=== PATIENT | female | born 1990 | race Asian ===

== ENCOUNTER 2020-08-13 06:26 | Inpatient (IN) ==
[2020-08-13] MEDS ORDERED: OXYTOCIN 30 UNITS/500 ML BAG IV PRN ×3 (06:44→23:46)
--- NOTE | 2020-08-13 06:47 | Labor Progress Brief Note ---
Date of Service August 13, 2020 Subjective at 40+ weeks presents complaining of Q3min contractions through the night, worsening intensity. No LOF, no VB, good FM. Uncomplicated , GBS neg. Assessment & Plan (1) Normal labor and delivery: Admit, expectant mgmt of labor, epidural on request Physical Exam Physical Exam: /- FHT Cat 1 [place] Q2-5 palpably vertex Results & Data ([facility]) Vital Signs (Past 12 Hours) Vital Signs Pulse BP 08/13/20 06:40 96 H 111/73 Coding Level of Care Code None Diagnoses Normal labor and delivery O80
[2020-08-13] MEDS: LACTATED RINGER'S 1,000 ML IV PRN ×3 (06:54→15:51)
[2020-08-13 07:09] LABS: Hematocrit (blood only) 32.7 % (37-47); Hemoglobin 11.1 g/dL (12.0-16.0); Mean Corpuscular Hemoglobin 33.8 pg (25-34); Mean Corpuscular Hgb Conc 33.9 g/dL (32-36); Mean Corpuscular Volume 99.7 fL (80-100); Mean Platelet Volume 9.7 fL (7.4-10.4); Platelet Count 185 K/uL (130-400); RDW Coefficient of Variation 13.6 % (11.5-14.5); RDW Standard Deviation 49.1 fL (36.4-46.3); Red Blood Count 3.28 M/uL (4.2-5.4); White Blood Count 10.87 K/uL (4.8-10.8)
[2020-08-13] MEDS ORDERED: SODIUM CHLORIDE 0.9% INJ 10 ML VIAL ONE (07:13)
[2020-08-13] MEDS ORDERED: ePHEDrine sulfate 50 MG/ML AMP ONE (07:13)
[2020-08-13] MEDS ORDERED: fentaNYL citrate 100 MCG/2 ML VIAL ONE ×2 (07:14→15:20)
[2020-08-13] MEDS ORDERED: BUPIVACAINE 0.25% 30 ML VIAL ONE (07:14)
[2020-08-13] MEDS ORDERED: fentaNYL 2MCG/ML ROPIVACAINE 1.25MG/ML 100 ML BAG EPI ONE (07:14)
[2020-08-13] MEDS ORDERED: diphenhydrAMINE 50 MG/ML VIAL IV PRN (08:23)
[2020-08-13] MEDS ORDERED: fentaNYL 2MCG/ML ROPIVACAINE 1.25MG/ML 100 ML BAG EPI PRN (08:23)
[2020-08-13] MEDS ORDERED: NALOXONE HCL 0.4 MG/1 ML VIAL/CARP IV PRN (08:23)
[2020-08-13] MEDS ORDERED: NALOXONE HCL 1 MG in SODIUM CHLORIDE 0.9% 1000ML 1,000 ML IV PRN (08:23)
[2020-08-13] MEDS ORDERED: ePHEDrine sulfate 50 MG/ML AMP IV PRN (08:23)
--- NOTE | 2020-08-13 08:25 | Anesthesiology Consultation ---
Date of Service August 13, 2020 Assessment & Plan Chart Review Chart Review: Acceptable Risk for Labor Epidural Consults Requested none History Height/Weight Height: 5 ft 1 in Weight: 60.328 kg Allergies Allergy/AdvReac Type Severity Reaction Status Date / Time No Known Allergies Allergy Verified 08/10/20 10:07 Medications Home Medications Medication Instructions Recorded Confirmed Last Taken prenat.vits,julia,dfc-hesd-myzyt 1 tab PO DAILY 02/09/20 08/13/20 08/12/20 0800 Iron (ferrous sulfate) 65 mg PO DAILY 08/13/20 08/13/20 08/12/20 65 Active Medications Generic Name Dose Route Start Last Admin Trade Name Freq PRN Reason Stop Dose Admin Lactated Ringer's 1,000 mls @ 125 mls/hr 08/13/20 06:44 08/13/20 07:59 Lr IV 08/15/20 06:43 125 mls/hr .Q8H PRN Administration L&D Protocol Protocol Past Surgical History Surgical History S/P dilation and curettage Social History Smoking Status: Never smoker Do You Dip or Chew Tobacco: No Hx Alcohol Use: No Hx Substance Use: No substance use type: does not use Physical Exam Vital Signs Last Vital Signs Temp 36.8 C 08/13/20 07:43 Pulse 91 H 08/13/20 08:24 Resp 18 08/13/20 07:43 BP 109/62 08/13/20 08:24 Pulse Ox 98 08/13/20 08:20 Testing Laboratory Results 08/13/20 06:57
[2020-08-13] MEDS ORDERED: LIDOCAINE 1% MPF 5 ML VIAL ONE (15:21)
--- NOTE | 2020-08-13 15:55 | Communication Note ---
Date of Service: August 13, 2020 Called for pt c/o increasing pain with contractions. Bolused existing epidural with 1% lidocaine plus 100 mcg fentanyl. VSS.
[2020-08-13] MEDS ORDERED: LIDOCAINE 1% LOCAL 20 ML VIAL ONE (23:28)
[2020-08-13] MEDS ORDERED: DIPHTHERIA/TETANUS/PERTUSSIS 0.5 ML SYR/VIAL IM ONE (23:46)
[2020-08-13] MEDS ORDERED: HYDROCORTISONE ACETATE 25 MG SUPP PR PRN (23:46)
[2020-08-13] MEDS ORDERED: bisacodyL 10 MG SUPP PR PRN (23:46)
[2020-08-13] MEDS ORDERED: SUPERCREAM 0.870% 15 GM JAR EXT PRN (23:46)
[2020-08-13] MEDS ORDERED: ACETAMINOPHEN 325 MG TAB PO PRN (23:46)
[2020-08-13] MEDS ORDERED: miSOPROStoL 100 MCG TAB PR ONE (23:46)
[2020-08-13] MEDS ORDERED: BENZOCAINE 20% AER SPR 82.5 GM CAN EXT PRN (23:46)
[2020-08-13] MEDS ORDERED: METHYLERGONOVINE MALEATE 0.2 MG/ML AMP IM ONE (23:46)
--- NOTE | 2020-08-14 01:17 | Anesthesiology Progress Note ---
Date of Service August 14, 2020 Anesthesia Post Procedure Vital Signs Vital Signs: Temp Pulse Resp BP Pulse Ox 08/14/20 01:10 93 H 124/58 L 08/14/20 01:00 18 08/14/20 00:59 82 120/65 08/14/20 00:42 99 H 125/60 08/14/20 00:33 95 H 121/81 08/14/20 00:30 18 08/14/20 00:09 83 138/75 08/13/20 23:59 104 H 103/75 08/13/20 23:50 122/80 08/13/20 23:45 97 H 112/66 08/13/20 23:30 98 H 114/65 08/13/20 23:18 111 H 97 08/13/20 23:15 100 H 106/61 08/13/20 23:13 101 H 97 08/13/20 23:08 123 H 97 08/13/20 23:02 103 H 97 08/13/20 23:01 129 H 94 08/13/20 23:00 37.2 C 18 08/13/20 22:57 127 H 95 08/13/20 22:55 138 H 94 08/13/20 22:52 137 H 95 08/13/20 22:50 145 H 94 08/13/20 22:47 151 H 96 08/13/20 22:45 118 H 115/71 08/13/20 22:42 131 H 95 08/13/20 22:37 156 H 95 08/13/20 22:32 118 H 95 08/13/20 22:30 114 H 18 118/72 08/13/20 22:27 129 H 96 08/13/20 22:22 101 H 97 08/13/20 22:17 113 H 96 08/13/20 22:16 121 H 105/67 08/13/20 22:12 125 H 96 08/13/20 22:10 118 H 93 08/13/20 22:07 99 H 96 08/13/20 22:02 89 98 08/13/20 22:00 100 H 127/69 08/13/20 21:57 117 H 97 08/13/20 21:52 81 97 08/13/20 21:47 123 H 97 08/13/20 21:45 112 H 118/87 08/13/20 21:42 94 H 97 06/21/21 21:37 116 H 96 08/13/20 21:32 99 H 97 08/13/20 21:30 110 H 108/53 L 08/13/20 21:27 104 H 97 08/13/20 21:22 80 97 08/13/20 21:17 120 H 97 08/13/20 21:15 108 H 117/67 08/13/20 21:12 98 H 97 08/13/20 21:07 82 98 08/13/20 21:02 113 H 97 08/13/20 21:01 81 117/67 08/13/20 21:00 37.4 C 18 08/13/20 20:57 115 H 97 08/13/20 20:52 85 98 08/13/20 20:47 80 98 08/13/20 20:46 106 H 113/69 94 08/13/20 20:42 98 H 97 08/13/20 20:37 104 H 97 08/13/20 20:32 99 H 98 08/13/20 20:31 72 105/57 L 08/13/20 20:27 83 98 08/13/20 20:22 72 97 08/13/20 20:17 74 98 08/13/20 20:15 71 104/58 L 08/13/20 20:12 70 97 08/13/20 20:07 72 97 08/13/20 20:02 72 97 08/13/20 20:00 74 101/55 L 08/13/20 19:57 75 98 08/13/20 19:52 84 98 08/13/20 19:47 83 97 08/13/20 19:45 82 101/60 08/13/20 19:42 80 97 08/13/20 19:37 83 97 08/13/20 19:32 85 99 08/13/20 19:30 90 106/78 08/13/20 19:27 105 H 100 08/13/20 19:22 36.3 C L 83 18 98 08/13/20 19:17 88 97 08/13/20 19:15 80 101/61 08/13/20 19:12 80 99 08/13/20 19:07 77 99 08/13/20 19:02 70 98 08/13/20 19:00 72 114/67 08/13/20 18:57 86 99 06/21/21 18:52 74 98 08/13/20 18:47 71 98 08/13/20 18:46 79 106/64 08/13/20 18:42 80 98 08/13/20 18:37 71 96 08/13/20 18:32 75 95 08/13/20 18:31 37.2 C 75 18 104/63 08/13/20 18:27 71 95 08/13/20 18:26 77 94 08/13/20 18:22 72 94 08/13/20 18:19 72 93 08/13/20 18:17 75 97 08/13/20 18:15 74 103/56 L 08/13/20 18:13 72 94 08/13/20 18:12 69 98 08/13/20 18:07 71 98 08/13/20 18:02 73 18 103/61 99 08/13/20 17:59 74 93 08/13/20 17:56 77 99 08/13/20 17:51 76 100 08/13/20 17:46 71 100 08/13/20 17:45 74 114/71 08/13/20 17:41 80 99 08/13/20 17:36 77 99 08/13/20 17:31 68 18 147/83 H 99 08/13/20 17:26 73 99 08/13/20 17:21 81 100 08/13/20 17:16 78 116/70 100 08/13/20 17:11 76 100 08/13/20 17:06 77 100 08/13/20 17:01 76 100 08/13/20 17:00 71 18 125/77 08/13/20 16:56 73 100 08/13/20 16:51 76 100 08/13/20 16:46 78 99 08/13/20 16:45 90 114/80 08/13/20 16:41 75 100 08/13/20 16:36 75 99 08/13/20 16:31 37.2 C 75 99 08/13/20 16:30 70 18 119/68 08/13/20 16:26 72 97 08/13/20 16:21 67 97 08/13/20 16:16 69 98 08/13/20 16:11 63 97 08/13/20 16:10 63 111/68 08/13/20 16:06 69 98 06/21/21 16:05 69 18 121/71 08/13/20 16:01 67 98 08/13/20 15:59 67 119/73 08/13/20 15:56 65 98 08/13/20 15:55 65 110/65 08/13/20 15:51 65 97 08/13/20 15:48 65 111/65 08/13/20 15:47 68 94 08/13/20 15:46 66 113/64 94 08/13/20 15:44 67 99/60 L 08/13/20 15:42 68 100/60 08/13/20 15:41 72 96 08/13/20 15:40 74 102/61 08/13/20 15:38 73 105/58 L 08/13/20 15:36 75 100/56 L 96 08/13/20 15:34 64 117/72 08/13/20 15:32 67 18 119/77 08/13/20 15:31 65 97 08/13/20 15:30 75 116/71 93 08/13/20 15:28 69 103/66 08/13/20 15:26 69 98 08/13/20 15:21 71 95 08/13/20 15:16 67 98 08/13/20 15:13 68 18 104/65 08/13/20 15:11 70 99 08/13/20 15:06 73 100 08/13/20 15:01 74 100 08/13/20 14:56 65 99 08/13/20 14:51 75 100 08/13/20 14:46 70 100 08/13/20 14:42 75 18 113/71 08/13/20 14:41 74 100 08/13/20 14:36 75 100 08/13/20 14:31 89 99 08/13/20 14:26 77 100 08/13/20 14:21 73 100 08/13/20 14:16 75 99 08/13/20 14:11 76 98 08/13/20 14:06 72 99 08/13/20 14:01 70 98 08/13/20 14:00 36.7 C 85 20 111/74 08/13/20 13:56 73 98 08/13/20 13:51 70 99 08/13/20 13:46 82 98 08/13/20 13:45 71 18 105/69 08/13/20 13:41 75 98 06 13:36 73 98 08/13/20 13:31 71 97 08/13/20 13:30 73 18 109/71 08/13/ 13:26 70 97 06/21 13:21 68 97 08/13/20 13:16 69 98 08/13/20 13:15 69 18 108/71 08/13/20 13:11 69 98 08/13/20 13:06 78 98 08/13/20 13:01 73 99 08/13/20 12:59 72 18 114/72 08/13/20 12:56 81 98 08/13/20 12:51 70 98 08/13/20 12:46 75 98 08/13/20 12:45 71 18 107/70 08/13/20 12:41 76 99 08/13/20 12:36 70 98 08/13/20 12:31 74 99 08/13/20 12:29 84 18 109/72 08/13/20 12:26 75 98 08/13/20 12:21 76 98 08/13/20 12:16 79 99 08/13/20 12:15 76 18 108/62 08/13/20 12:11 75 98 08/13/20 12:06 80 97 08/13/20 12:01 75 97 08/13/20 12:00 82 18 103/55 L 08/13/20 11:56 81 97 08/13/20 11:51 76 97 08/13/20 11:46 79 97 08/13/20 11:45 77 18 89/55 L 08/13/20 11:41 77 97 08/13/20 11:36 80 98 08/13/20 11:31 81 98 08/13/20 11:29 71 18 107/70 08/13/20 11:26 77 98 08/13/20 11:21 79 99 08/13/20 11:16 76 99 08/13/20 11:14 73 18 108/69 08/13/20 11:11 78 99 08/13/20 11:06 84 99 08/13/20 11:01 74 18 112/68 99 08/13/20 10:55 77 98 08/13/20 10:50 77 99 06/21/21 10:45 82 109/68 99 06/21 10:40 74 99 06/21 10:35 78 99 06/21 10:31 82 18 119/82 06/21 10:30 88 99 06/21 10:25 79 99 06/21 10:20 77 99 06/21 10:15 82 99 06/21 10:14 83 108/69 06/21 10:10 82 98 06/21 10:05 82 98 06/21 10:01 71 18 107/65 08/13/21 10:00 80 98 06/21 09:55 82 99 08/13/21 09:50 80 98 06/21 09:45 85 98 08/13/21 09:44 80 18 110/71 08/13/21 09:40 88 98 08/13/21 09:35 85 98 08/13/ 09:30 79 18 102/67 98 08/13/ 09:25 81 98 08/13/21 09:20 78 99 08/13/20 09:16 76 18 110/70 08/13/21 09:15 82 98 06/ 09:10 93 H 98 08/13/ 09:05 91 H 99 08/13/ 09:00 91 H 99 08/13/ 08:55 83 18 110/69 98 08/13/21 08:50 95 H 99 08/13/ 08:49 88 18 105/66 21/21 08:45 86 18 109/62 99 08/13/21 08:40 93 H 98 08/13/21 08:39 92 H 108/74 06/21 08:36 87 18 109/71 08/13/21 08:35 91 H 97 06/21 08:30 92 H 98 08/13/21 08:29 89 113/71 06/21 08:25 103 H 98 06/21 08:24 91 H 109/62 06/21 08:22 85 18 103/65 06/21 08:20 88 18 104/67 98 0621/21 08:18 94 H 110/68 08/13/21 08:16 85 18 104/66 08/13/21 08:15 82 98 06/21 08:14 82 105/63 08/13/20 08:12 80 116/69 08/13/20 08:10 84 106/62 97 08/13/20 08:08 92 H 18 120/64 08/13/20 08:06 93 H 18 120/69 93 08/13/20 08:05 93 H 97 08/13/20 08:00 92 H 96 08/13/20 07:55 98 H 99 08/13/20 07:50 77 100 08/13/20 07:45 80 99 08/13/20 07:43 36.8 C 18 08/13/20 07:40 85 99 08/13/20 07:39 76 111/67 08/13/20 07:35 95 H 100 08/13/20 06:46 96 H 18 111/73 08/13/20 06:40 96 H 111/ Pain Intensity Bilateral Abdomen: Pain Intensity: 6 Transfer of Care Handoff Completed per policy Notes Mental Status: alert / awake / arousable and participated in evaluation Patient Amnestic to Procedure: Yes Nausea / Vomiting: adequately controlled Pain: adequately controlled Airway Patency, RR, SpO2: stable & adequate BP & HR: stable & adequate Hydration State: stable & adequate Anesthetic Complications: no major complications apparent
--- NOTE | 2020-08-14 01:19 | Anesthesia Procedure Note ---
Date of Service August 14, 2020 Anesthesia Post Epidural Note Vital Signs Vital Signs: Temp Pulse Resp BP Pulse Ox 37.2 C 93 H 18 124/58 L 97 08/13/20 23:00 08/14/20 01:10 08/14/20 01:00 08/14/20 01:10 08/13/20 23:18 Pain Intensity Bilateral Abdomen: Pain Intensity: 6 Notes Mental Status: alert / awake / arousable Nausea / Vomiting: adequately controlled Pain: adequately controlled Airway Patency, RR, SpO2: stable & adequate BP & HR: stable & adequate Hydration State: stable & adequate Neuraxial Anesthesia: was administered and sensory block is resolving Anesthetic Complications: no major complications apparent and Pt Satisfied with anesthetic care Epidural: Removed without complications and With tip intact
[2020-08-14 06:59] LABS: Hematocrit (blood only) 29.6 % (37-47); Hemoglobin 10.1 g/dL (12.0-16.0)
--- NOTE | 2020-08-14 08:00 | Obstetrical Progress Note ---
Date of Service August 14, 2020 Assessment & Plan (1) Encounter for care and examination after delivery: 30yo s/p VAVD. Doing well, Routine care Subjective Ambulation: ambulating normally Voiding: no voiding problems Passing Gas:: Yes Diet Tolerance:: regular diet Lochia:: Moderate Feeding Type:: breast feeding Physical Exam Constitutional WD/WN, vitals as above Respiratory normal respiratory effort; no respiratory distress and no labored breathing Gastrointestinal (Abdomen) Inspection/Auscultation: abdomen normal to inspection; abdomen not distended Percussion/Palpation: abdomen soft; abdomen nontender, no guarding and abdomen not rigid Genitourinary OB Exam Abdomen: + fundal height Fundus: + firm and + relation to umbilicus (Below); not tender and not boggy Results & Data ([facility]) Vital Signs (Past 12 Hours) Vital Signs Temp Pulse Pulse Resp BP BP Pulse Ox 08/14/20 03:00 36.4 C L 83 16 125/82 98 08/14/20 01:39 89 113/70 08/14/20 01:30 18 08/14/20 01:29 97 H 115/83 08/14/20 01:19 92 H 112/79 08/14/20 01:10 93 H 124/58 L 08/14/20 01:00 18 08/14/20 00:59 82 120/65 08/14/20 00:42 99 H 125/60 08/14/20 00:33 95 H 121/81 08/14/20 00:30 18 08/14/20 00:09 83 138/75 08/13/20 23:59 104 H 103/75 08/13/20 23:50 122/80 08/13/20 23:45 97 H 112/66 08/13/20 23:30 98 H 114/65 08/13/20 23:18 111 H 97 08/13/20 23:15 100 H 106/61 08/13/20 23:13 101 H 97 08/13/20 23:08 123 H 97 08/13/20 23:02 103 H 97 08/13/20 23:01 129 H 94 08/13/20 23:00 37.2 C 18 08/13/20 22:57 127 H 95 08/13/20 22:55 138 H 94 08/13/20 22:52 137 H 95 06/21/21 22:50 145 H 94 08/13/20 22:47 151 H 96 08/13/20 22:45 118 H 115/71 08/13/20 22:42 131 H 95 08/13/20 22:37 156 H 95 08/13/20 22:32 118 H 95 08/13/20 22:30 114 H 18 118/72 08/13/20 22:27 129 H 96 08/13/20 22:22 101 H 97 08/13/20 22:17 113 H 96 08/13/20 22:16 121 H 105/67 08/13/20 22:12 125 H 96 08/13/20 22:10 118 H 93 08/13/20 22:07 99 H 96 08/13/20 22:02 89 98 08/13/20 22:00 100 H 127/69 08/13/20 21:57 117 H 97 08/13/20 21:52 81 97 08/13/20 21:47 123 H 97 08/13/20 21:45 112 H 118/87 08/13/20 21:42 94 H 97 08/13/20 21:37 116 H 96 08/13/20 21:32 99 H 97 08/13/20 21:30 110 H 108/53 L 08/13/20 21:27 104 H 97 08/13/20 21:22 80 97 08/13/20 21:17 120 H 97 08/13/20 21:15 108 H 117/67 08/13/20 21:12 98 H 97 08/13/20 21:07 82 98 08/13/20 21:02 113 H 97 08/13/20 21:01 81 117/67 08/13/20 21:00 37.4 C 18 08/13/20 20:57 115 H 97 08/13/20 20:52 85 98 08/13/20 20:47 80 98 08/13/20 20:46 106 H 113/69 94 08/13/20 20:42 98 H 97 08/13/20 20:37 104 H 97 08/13/20 20:32 99 H 98 08/13/20 20:31 72 105/57 L 08/13/20 20:27 83 98 08/13/20 20:22 72 97 08/13/20 20:17 74 98 06/21/21 20:15 71 104/58 L 08/13/20 20:12 70 97 08/13/20 20:07 72 97 08/13/20 20:02 72 97 08/13/20 20:00 74 101/55 L
[2020-08-14] MEDS: IBUPROFEN 600 MG TAB PO PRN ×2 (08:01→20:01)
[2020-08-14] MEDS: PRENATAL VITAMIN 1 TAB PO SCH (08:01)
[2020-08-14] MEDS: FERROUS SULFATE 325 MG TAB PO SCH (08:01)
[2020-08-14] MEDS: DOCUSATE SODIUM 100 MG CAP PO SCH ×2 (08:01→20:00)
[2020-08-14] MEDS ORDERED: bisacodyL 5 MG TABEC PO SCH (20:00)
[2020-08-15] MEDS: IBUPROFEN 600 MG TAB PO PRN ×2 (05:54→11:27)
--- NOTE | 2020-08-15 06:58 | Obstetrical Progress Note ---
Date of Service August 15, 2020 Assessment & Plan (1) Encounter for care and examination after delivery: 30 yo PP2 from VAVD, doing well -Meeting all pp milestones -O+/rubella immune/ -f/u 6 weeks for appt, stable for d/c home today Subjective Ambulation: ambulating normally Voiding: no voiding problems Passing Gas:: Yes Diet Tolerance:: regular diet Lochia:: Small Feeding Type:: breast feeding Pain well managed with medication Review of Systems Denies fevers, chills, n/v, CAMPA, CP, SOB Physical Exam Constitutional WD/WN, vitals as above no acute distress Respiratory normal respiratory effort, lungs clear to auscultation Cardiovascular RRR, no murmur, no edema Gastrointestinal (Abdomen) Percussion/Palpation: abdomen soft; abdomen nontender fundus firm at umbilicus and NT Musculoskeletal BLE symmetric, nonerythematous, nontender Results & Data ([facility]) Vital Signs (Past 12 Hours) Vital Signs Temp Pulse Resp BP Pulse Ox 08/15/20 00:40 97.9 F 77 16 100/65 97 08/14/20 19:45 97.7 F 73 16 107/71
[2020-08-15] MEDS: DOCUSATE SODIUM 100 MG CAP PO SCH (08:53)
[2020-08-15] MEDS: PRENATAL VITAMIN 1 TAB PO SCH (08:53)
[2020-08-15] MEDS: FERROUS SULFATE 325 MG TAB PO SCH (08:53)
--- NOTE | 2020-08-17 19:53 | Operative Report (OR) ---
DATE OF PROCEDURE: 08/13/2020 PROCEDURE: Vacuum-assisted vaginal delivery with second-degree perineal laceration repair. SURGEON: Jamel Quinn MD. PREOPERATIVE DIAGNOSES: 1. Single intrauterine at 40+ weeks gestational age. 2. Spontaneous labor. 3. intolerance of labor. 4. Prolonged second stage of labor. POSTOPERATIVE DIAGNOSES: 1. Single intrauterine at 40+ weeks gestational age. 2. Spontaneous labor. 3. intolerance of labor. 4. Prolonged second stage of labor. 5. Status post procedure. ESTIMATED BLOOD LOSS: 400 mL. DRAINS: Straight cath prior to vacuum-assisted delivery. URINE OUTPUT: 500 mL via straight cath. COMPLICATIONS: None. FINDINGS: Viable male infant with weight of 7 pounds 4 ounces and Apgars of 4, 5 and 8 at one and fi ve and ten minutes respectively. INDICATIONS: Sylvia is a 30-year-old G1, P0, admitted at 40+ weeks gestational age with spontaneous lab or. The patient progressed in labor to approximately 5 cm, at which time she received an epidural, h ad spacing in contractions. She was started on oxytocin per regular protocol and slowly progressed t o complete-complete, +1 station. After attempts to allow the patient to labor down, the patient was still noted to be at +1 station. Decision was made to begin active pushing. The patient began push ing effectively with noted change in station and pushed to approximately +3 station over approximatel y 2-1/2 hours of pushing. The was noted to have recurrent variable decels throughout the ent josh pushing process and intermittent tachycardia. After there was noted to be a slow change fro m moderate variability to more of a minimal variability around the 2-1/2 hour iva, decision was made to offer the patient a vacuum-assisted delivery secondary to maternal exhaustion as well as in tolerance in pushing process. The patient was agreeable to the vacuum-assisted delivery and was verb ally consented for the procedure. DESCRIPTION OF PROCEDURE: The patient progressed to 10 cm dilated, pushed to approximately +3 stati on, at which time due to intolerance of labor and maternal exhaustion, the patient was verbally consented for vacuum-assisted delivery. The vacuum was applied to 2 cm anterior to the posterior fo ntanelle and the vacuum was applied to be within the green zone. Over the patient's one contraction with one pull, the was noted to have delivery of the head to position. The vacuum w as removed and the head was noted to spontaneously expel after . There was noted to be a tig ht nuchal cord, which was reduced and body and shoulders quickly followed. was noted to not be vigorous upon delivery, but was making some attempts at being vigorous. However, due to inadequat e attempts, the cord was double clamped and cut, was taken to the waiting nursery staff for r esuscitation. Cord segment and cord blood were obtained. Attention was then turned to delivery of t he placenta, which was delivered intact, 3-vessel cord. The patient was noted to have some increased bleeding, was given one dose of Methergine. She is also given Cytotec at the completion of the case due to the prolonged pushing. After delivery of the placenta, attention was then turned to evaluati on of the perineum, vagina, cervix. There was noted to be a second-degree perineal laceration, which was repaired with 3-0 Vicryl in the traditional crown stitch. Needle, sponge, and instrument counts were correct at the completion of the case. Both mother and were stable soon after the comp letion of the full care. Job ID: [id number]
--- NOTE | 2020-08-18 00:12 | Discharge Summary (DS) ---
DATE OF ADMISSION: 08/13/2020 DATE OF DISCHARGE: 08/15/2020. HOSPITAL COURSE: Patient was admitted for spontaneous labor. She ultimately underwent a vacuum-assi sted vaginal delivery on admission day. Please see operative report for additional details. The pat ient remained in-house until day #2 and had no additional complications or concerns. [place] ent was discharged home in stable condition, provided with both written and verbal discharge instruct ions with planned followup at 6 weeks or as needed otherwise. Job ID: [id number]
== END 2020-08-15 14:15 | disposition home or self-care (01) | DRG 807 ==
LOC: OPB 06:26 → 4S1 06:28 → 4S2 08-14 02:13